=== PATIENT | female | born 1990 | race African-American/Black ===

== ENCOUNTER 2022-08-05 12:31 | Emergency (ER) | payer OTHER, SELFPAY ==
[2022-08-05] MEDS ORDERED: Dexamethasone 10 MG/ML VIAL ONE (14:41)
== END 2022-08-05 14:48 | disposition home or self-care (01) ==
LOC: ERS 12:31
DX: M79.601 Pain in right arm (principal); I10 Essential (primary) hypertension
CPT/HCPCS: 99283; J1100

== ENCOUNTER 2022-12-17 08:03 | Emergency (ER) | payer OTHER ==
[2022-12-17 09:03] LABS: #Basophils 0.1 thou/uL (0.0-0.2); #Eosinphils 0.2 thou/uL (0.0-0.7); #Lymphocytes 1.8 thou/uL (1.20-3.40); #Monocytes 0.3 thou/uL (0.11-0.59); #Neutrophils 2.8 thou/uL (1.40-6.50); %Basophils 1.2 % (0.0-1.0); %Eosinophils 3.8 % (0.0-10.0); %Lymphocytes 34.9 % (21.0-51.0); %Neutrophils 55.1 % (42.0-75.0); Hemoglobin 12.1 g/dL (12.0-16.0); Mean Corpuscular HGB CONC 33.3 g/dL (32.0-36.0); Mean Corpuscular Hemoglobin 31.9 pg (27.0-31.0); Mean Corpuscular Volume 95.8 fl (78.0-98.0); Mean Platelet Volume 8.3 fL (7.4-10.4); Platelet Count 245 10x3/uL (130-400); RBC Distribution Width 12.2 % (11.5-14.5); Red Blood Cell (RBC) Count 3.79 mill/uL (4.20-5.40)
[2022-12-17 09:27] LABS: ALT (SGPT) 14 U/L (8-55); AST (SGOT) 15 U/L (5-34); Albumin 4.3 g/dL (3.5-5.0); Alkaline Phosphatase 39 U/L (40-110); Anion Gap 13 mmol/L (10-20); BUN (Urea Nitrogen) 18 mg/dL (7.0-18.7); Bilirubin, Total 0.4 mg/dL (0.2-1.2); Calc. Creatinine Clearance 0 mL/min (70-130); Calcium 9.1 mg/dL (7.8-10.44); Carbon Dioxide 24 mmol/L (22-29); Chloride 104 mmol/L (98-107); Estimated GFR 101; Globulin 3.1 g/dL (2.4-3.5); Glucose 116 mg/dL (70-105); Lipase 12 U/L (8-78); Potassium 3.3 mmol/L (3.5-5.1); Protein, Total 7.4 g/dL (6.0-8.3); Sodium 138 mmol/L (136-145)
[2022-12-17] MEDS ORDERED: Potassium Chloride 20 MEQ TAB ONE (09:47)
[2022-12-17] MEDS ORDERED: Acetaminophen 500 MG TAB ONE (09:47)
[2022-12-17 10:03] LABS: Bilirubin Negative (Negative); Blood, Urine Negative (Negative); Clarity Clear (Clear); Glucose, Urine (Dipstick) Normal (Negative); Ketone, Urine Negative (Negative); Leukocyte Negative Leu/uL (Negative); Nitrite Negative (Negative); Protein, Urine (Dipstick) 20 mg/dL (Neg-Trace); Specific Gravity, Urine 1.036 (1.002-1.036); Urobilinogen Normal mg/dL (Less than 2); pH, Urine 5.5 (5.0-9.0)
== END 2022-12-17 11:57 | disposition home or self-care (01) ==
LOC: ERS 08:03
DX: O46.91 Antepartum hemorrhage, unspecified, first trimester (principal); O10.911 Unspecified pre-existing hypertension complicating pregnancy, first trimester; Z3A.01 Less than 8 weeks gestation of pregnancy
CPT/HCPCS: 36415; 76856; 80053; 81003; 83690; 84702; 85025; 86900; 86901